=== PATIENT | male | born 1970 | race Caucasian/White ===

== ENCOUNTER 2018-11-21 15:25 | Inpatient (IN) ==
[2018-11-21] MEDS ORDERED: Mag Hydrox/Al Hydrox/Simeth 30 ML UDC PO PRN (15:38)
[2018-11-21] MEDS ORDERED: *HR* LORazepam 1 MG TABLET PO PRN (15:38)
[2018-11-21] MEDS ORDERED: *HR* LORazepam 2 MG/ML VIAL IM PRN (15:38)
[2018-11-21] MEDS ORDERED: Haloperidol Lactate 5 MG/ML VIAL IM PRN (15:38)
[2018-11-21] MEDS ORDERED: MOM Conc 10 ML UD.LIQ PO PRN (15:38)
[2018-11-21] MEDS ORDERED: Acetaminophen 325 MG TABLET PO PRN (15:38)
[2018-11-21] MEDS ORDERED: cloNIDine HCl 0.1 MG TABLET PO PRN (18:16)
[2018-11-21] MEDS: risperiDONE 1 MG TABLET PO SCH (21:08)
[2018-11-21] MEDS: Diclofenac Sodium 75 MG TABLET PO SCH (21:08)
[2018-11-21] MEDS: hydrOXYzine pamoate 25 MG CAPSULE PO PRN (21:08)
[2018-11-21] MEDS: traZODone 50 MG TABLET PO PRN (21:08)
[2018-11-22] MEDS: Diclofenac Sodium 75 MG TABLET PO SCH ×2 (10:47→21:07)
[2018-11-22] MEDS: risperiDONE 1 MG TABLET PO SCH ×2 (10:47→21:09)
[2018-11-22] MEDS: Nicotine 21 MG PATCH.TD24 TD SCH (10:47)
[2018-11-22] MEDS: BUPRENORPHINE NALOXONE PO SCH (11:15)
[2018-11-22] MEDS: *HR* Buprenorphine HCl 8 MG TAB.SUBL SL SCH (12:34)
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
[2018-11-22] MEDS: Mirtazapine 15 MG TABLET PO SCH (21:07)
[2018-11-22] MEDS: traZODone 50 MG TABLET PO PRN (21:07)
[2018-11-22] MEDS: hydrOXYzine pamoate 25 MG CAPSULE PO PRN (21:08)
[2018-11-23] MEDS: *HR* Buprenorphine HCl 8 MG TAB.SUBL SL SCH (08:38)
[2018-11-23] MEDS: risperiDONE 1 MG TABLET PO SCH ×2 (08:38→21:25)
[2018-11-23] MEDS: Diclofenac Sodium 75 MG TABLET PO SCH ×2 (08:38→21:25)
[2018-11-23] MEDS: Nicotine 21 MG PATCH.TD24 TD SCH (08:39)
[2018-11-23] MEDS ORDERED: *HR* Buprenorphine HCl 8 MG TAB.SUBL SL SCH (09:00)
[2018-11-23] MEDS: BUPRENORPHINE NALOXONE PO SCH (09:57)
--- NOTE | 2018-11-23 10:05 | Psychiatry Progress Note ---
Date of Encounter: 11/23/18 Time of Encounter: 10:04 Subjective Interval history: Doing well. Mood stable, thinking clear. TOlerated medications. No SI/HI. No psychosis. Review of Systems Psychiatric: Reports: depression, anxiety, anhedonia (less enjoyment than before). Denies: suicidal ideation, change in appetite, homicidal ideation, confusion, memory loss Results - Vital Signs Vital Signs: Temp Pulse Resp BP Pulse Ox 98 F 97 18 120/72 96 11/23/18 08:56 11/23/18 08:56 11/23/18 08:56 11/23/18 08:56 11/23/18 08:56 Assessment and Plan (1) Bipolar disorder Current visit: No Status: Acute Plan: Continue hospitalization, Close observation, Suicide Precautions per unit protocol, Encourage participation in unit milieu, Group Therapy, Monitor sleep, Monitor appetite Additional Plan: continue current medication, therapist working on discharge planning, encourage groups. Risks, benefits, side effects, alternatives discussed w/pt: Yes Patient agreeable to treatment: Yes Qualifiers: Active/Remission status: currently active Current bipolar episode type: depressed Current episode severity: severe Psychotic features: with psychotic features Qualified Code(s): F31.5 - Bipolar disorder, current episode depressed, severe, with psychotic features Consult Discharge Plan - Plan Referrals: NONE,PCP [Primary Care Provider] - Psychiatry Exam - Constitutional Vitals: Temp Pulse Resp BP Pulse Ox 98 F 97 18 120/72 96 11/23/18 08:56 11/23/18 08:56 11/23/18 08:56 11/23/18 08:56 11/23/18 08:56 General appearance: age & developmentally appropriate, well-groomed, well- nourished - Musculoskeletal Gait: normal Station: relaxed Strength & Tone: normal for patient - Psychiatric Patient Orientation: Yes Person, Yes Time, Yes Place Level of alertness: Alert Behavior: calm, cooperative Psychomotor activity: Normal Eye Contact: Maintains Eye Contact Mood Description: Euthymic/stable, Depressed Patient description of mood: "better" Affect description: congruent with mood, dysphoric Speech Volume: Normal Speech pattern: normal rate, normal rhythm, normal tone, fluent, spontaneous Language & Vocabulary: consistent with education Thought Process: Linear, Goal Oriented Thought Content: No Suicidal ideation, No Homicidal ideation, No Overt delusions Perceptual Disturbances: No Auditory hallucinations, No Visual hallucinations Attention Span Ability: Capable of Focused Attention Memory Description: Grossly Intact Patient Reliability: Reliable Historian Fund of knowledge: Yes abstraction ability, Yes aware of current events Intelligence Estimate: Average Judgment: Fair Insight: Partial
[2018-11-23] MEDS: hydrOXYzine pamoate 25 MG CAPSULE PO PRN (21:25)
[2018-11-23] MEDS: Mirtazapine 15 MG TABLET PO SCH (21:26)
[2018-11-23] MEDS: traZODone 50 MG TABLET PO PRN (21:26)
[2018-11-24] MEDS: *HR* Buprenorphine HCl 8 MG TAB.SUBL SL SCH (08:49)
[2018-11-24] MEDS: Nicotine 21 MG PATCH.TD24 TD SCH (08:50)
[2018-11-24] MEDS: Diclofenac Sodium 75 MG TABLET PO SCH (08:50)
[2018-11-24] MEDS: risperiDONE 1 MG TABLET PO SCH (08:50)
--- NOTE | 2018-11-24 08:52 | Discharge Summary ---
Date of Encounter: 11/24/18 Time of Encounter: 10:00 Medications - Discharge Medications Prescriptions: RX: Buprenorphine HCl/Naloxone HCl [Buprenorphin-Naloxon 8-2 mg Sl] 1 tab PO DAILY 7 Days #7 tab.subl RX: cloNIDine HCl [CloNIDine HCl] 0.1 mg PO HS PRN #30 tablet PRN Reason: Sleep RX: hydrOXYzine HCl [Hydroxyzine HCl] 25 mg PO Q6H PRN #90 tablet PRN Reason: Anxiety RX: Mirtazapine [Remeron] 7.5 mg PO HS #30 tablet RX: risperiDONE [RisperDAL] 1 mg PO BID #30 tablet RX: traZODone [TraZODone] 50 mg PO HS PRN #30 tablet PRN Reason: Insomnia RX: Diclofenac Sodium [Voltaren] 75 mg PO BID 11/19/18 [History] RX: Omeprazole [PriLOSEC] 40 mg PO DAILY 11/19/18 [History] RX: Buprenorphine HCl/Naloxone HCl [Buprenorphin-Naloxon 8-2 mg Sl] 1 tab PO DAILY 7 Days #7 tab.subl 11/24/18 [Rx] RX: Mirtazapine [Remeron] 7.5 mg PO HS #30 tablet 11/24/18 [Rx] RX: cloNIDine HCl [CloNIDine HCl] 0.1 mg PO HS PRN #30 tablet 11/24/18 [Rx] RX: hydrOXYzine HCl [Hydroxyzine HCl] 25 mg PO Q6H PRN #90 tablet 11/24/18 [Rx] RX: risperiDONE [RisperDAL] 1 mg PO BID #30 tablet 11/24/18 [Rx] RX: traZODone [TraZODone] 50 mg PO HS PRN #30 tablet 11/24/18 [Rx] Allergy/AdvReac Type Severity Reaction Status Date / Time No Known Allergies Allergy Verified 11/22/18 20:51 Results Procedures and tests throughout hospitalization: None - Impressions None Provider Date of admission: 11/21/18 15:25 Primary care physician: PCP NONE Consults: None Discharging clinician: Renu Canales Psychiatry Exam - Constitutional Vitals: Temp Pulse Resp BP Pulse Ox 98.4 F 94 18 143/83 97 11/23/18 20:38 11/23/18 20:38 11/23/18 20:38 11/23/18 20:38 11/23/18 20:38 General appearance: age & developmentally appropriate, well-groomed, well- nourished, average - Musculoskeletal Gait: normal Station: relaxed Strength & Tone: normal for patient (Grossly) - Psychiatric Patient Orientation: Yes Person, Yes Time, Yes Place Level of alertness: Alert, Follows commands Behavior: calm, cooperative Psychomotor activity: Normal Eye Contact: Maintains Eye Contact Mood Description: Euthymic/stable Patient description of mood: "Pretty good" Affect description: congruent with mood, constricted Speech Volume: Normal Speech pattern: normal rate, normal tone, fluent, spontaneous, limited (Decreased prosody) Language & Vocabulary: consistent with education Thought Process: Logical, Linear, Goal Oriented Thought Content: No Suicidal ideation, No Homicidal ideation, No Overt delusions Perceptual Disturbances: No Reacting to internal stimuli, No Auditory hallucinations, No Visual hallucinations Attention Span Ability: Capable of Focused Attention Memory Description: Grossly Intact Patient Reliability: Reliable Historian Fund of knowledge: Yes abstraction ability, Yes aware of current events Intelligence Estimate: Average Judgment: Fair Insight: Partial Hospital Course Hospital course: Mr. Chinchilla is a 48 year old male with a reported past psychiatric history of depression, anxiety, and bipolar disorder who is being voluntarily admitted for paranoia and SI with possible attempt. Patient was admitted to from the ED on 11/19/18 for paranoia. However, soon after admission, we was found to have an altered mental status. He was transferred to inpatient medicine where is was determined that he had overdosed on his SSRI and TCA medications with jerking movements and clonus. He was intermittently paranoid and suicidal on the medical unit but without plan. Once medically stable, he was transferred back to . Patient was discontinued off fluoxetine, doxepin, and amitriptyline. He was also discontinued off ziprasidone. He was started on risperidone 1 mg by mouth twice a day for mood. He was also started on mirtazapine 7.5 mg by mouth daily at bedtime for sleep and mood. His physical jerking movements decreased throughout the visit, absent soon after admission. Upon discharge, he reports that he does notice now that the psychotic symptoms started with the initiation of the amitriptyline. He admits that it is possible he was not taking these me dications appropriately, though not doing this intentionally. He continued to state deny that he had an intentional overdose or was on drugs prior to admission. He was educated that he should cease the use of TCA medication due to his lethality. Patient was educated of her diagnosis and the risk-benefit side effects of this alternative treatment options and was monitored for responsiveness and side effects. Mood anxiety sleep and appetite interest improved as did future orientation. Self-harm thoughts subsided, thinking cleared, psychosis resolved, and mood stabilized. Patient was able to attend both individual and group therapy sessions as well as meeting with the psychiatrist daily and urged to discuss any medication or treatment issues or other concerns. The patient was educated primarily by verbal means about their diagnosis and manifestations in their life. The option for treatment including group and individual therapy programming was offered to the patient in the use of medications with all their potential risks, benefits, and side effects were discussed with the patient at length. The patient was given the opportunity to ask questions and was noted to participate in the treatment in the planning process. The patient felt ready and eager to be discharged from the inpatient psychiatric unit to continue on with treatment as an outpatient. The patient agreed that is they were safe for this disposition. The patient was considered to be able to participate in informed consent and decision making with respect to medical, legal, and financial issues of the time of discharge. At the time of discharge the patient adamantly denied any concerns for lethality including suicidal or homicidal thoughts ideations or plans and was future oriented toward ongoing mental health care, medical follow-up and sobriety. Time spent discussing smoking cessation with patient: more than 10 minutes Does patient wish to continue nicotine replacement upon disc: No - Time Spent with Patient Total time spent providing and/or coordinating discharge services: Greater than 30 minutes Greater than 30 minutes Specific discharge activities: Interval history reviewed. Available labs reviewed . Psychotherapy provided. Patient had an opportunity to ask questions and address concerns. Patient was in agreement with the treatment plan. The risks benefits and side effects of medications were discussed with the patient, including alternatives and treatment. The patient was educated on the abstaining from any alcohol or illicit substances, following up with all scheduled appointments, and taking all medications as prescribed. The patient was educated to continue MAT services which are already established Assessment and Plan - Patient/Caregiver Discharge Instructions Activity: resume usual activities as tolerated Diet: regular diet Additional Instructions: Continue current medications. Follow up with outpatient mental health. Encourage continued therapy in a group or individual setting. The patient was discharged to home. - Follow up Plan Follow up with: [facility] [Other] - 11/27/18 3:00 pm (You have an appintment scheduled with Faheem Bhagat on TuesdayNovember 27 at 3:00 PM. ) [facility] - 12[facility]01/18 3:00 pm (You have an appointment scheduled for Saturday, December 01, 2018 at 3:00 PM with Kaylen Brown for an initial intake assessment. This appointment typically takes 1 1 hours and will cover your current symptoms and goals for treatment. Please complete the New Patient Intake Packet provided to you by staff and bring this with you to this appointment. Please also bring your insurance card, identification, proof of residence (utility bill or similar piece of mail), and proof of income (if applicable). If you are unable to keep this appointment, please call the office at the number above as soon as possible.) Functional capacity at discharge: independent ambulation Overall status at discharge: Stable Disposition: Home, Self-Care Quality - Multiple Antipsychotics Patient discharged on 2 or more antipsychotic medications: No - Attending Attestation I examined this patient and my medical decision-making was reviewed with the Resident Physician. I agree with the documented findings, disposition and treatment plan as described except to the extent set forth below. Procedures - Procedures Procedures: Medication Management, Crisis Stabilization, Supportive Therapy, Group Therapy, Psychoeducational Therapy
[2018-11-24 09:24] VITALS: BP 139/73
== END 2018-11-24 15:00 | disposition home or self-care (01) | DRG 753 ==
LOC: 1ANU 15:25
PROVIDERS: ADMIT Psychiatry & Neurology Psychiatry; ATTEND Psychiatry & Neurology Psychiatry

== ENCOUNTER 2020-09-21 09:21 | Inpatient (IN) ==
[2020-09-21 09:46] LABS: Bilirubin,Urine Negative (Negative); Blood,Urine Negative (Negative); Clarity,Urine Clear (Clear); Color,Urine Light-Yellow (Yellow); Glucose,Urine (UA) Normal (Normal); Ketones,Urine Negative (Negative); Leukocyte Esterase,Urine Negative (Negative); Nitrite,Urine Negative (Negative); PH,Urine 6.5 pH Units (5.0-8.0); Protein,Urine Negative (Neg-Trace); Specific Gravity,Urine 1.013 (1.010-1.025); Urobilinogen,Urine Normal (Normal)
[2020-09-21 09:55] LABS: Amphetamine Screen,Urine Positive ng/mL (Cutoff=1000); Barbiturate Screen,Urine Negative ng/mL (Cutoff=200); Benzodiazepines Screen,Urine Negative ng/mL (Cutoff=200); Cannabinoid Screen,Urine Negative ng/mL (Cutoff = 50); Cocaine Screen,Urine Negative ng/mL (Cutoff= 300); Opiate Screen,Urine Negative ng/mL (Cutoff=300); Phencyclidine Screen,Urine Negative ng/mL (Cutoff=25)
[2020-09-21] MEDS ORDERED: haloperidoL 5 MG TABLET PO PRN (12:27)
[2020-09-21] MEDS ORDERED: *HR* LORazepam 2 MG/ML VIAL IM PRN (12:27)
[2020-09-21] MEDS ORDERED: Mag Hydrox/Al Hydrox/Simeth 30 ML UDC PO PRN (12:27)
[2020-09-21] MEDS ORDERED: *HR* LORazepam 1 MG TABLET PO PRN (12:27)
[2020-09-21] MEDS ORDERED: Haloperidol Lactate 5 MG/ML VIAL IM PRN (12:27)
[2020-09-21] MEDS: Nicotine 21 MG PATCH.TD24 TD SCH (16:35)
[2020-09-21] MEDS: hydrOXYzine pamoate 25 MG CAPSULE PO PRN (16:39)
[2020-09-21] MEDS: GuaiFENesin/Pseudophedrine TABLET PO SCH (21:01)
[2020-09-21] MEDS: BUPRENORPHINE SL SCH (21:01)
[2020-09-21] MEDS: NALOXONE SL SCH (21:01)
[2020-09-21] MEDS: QUEtiapine Fumarate 100 MG TABLET PO SCH (21:01)
[2020-09-21] MEDS: Furosemide 40 MG TABLET PO SCH (21:01)
[2020-09-22] MEDS: ARIPiprazole 5 MG TABLET PO SCH (08:40)
[2020-09-22] MEDS: FLUoxetine 20 MG CAPSULE PO SCH (08:40)
[2020-09-22] MEDS: GuaiFENesin/Pseudophedrine TABLET PO SCH ×2 (08:41→21:39)
[2020-09-22] MEDS: Furosemide 40 MG TABLET PO SCH ×2 (08:41→21:39)
[2020-09-22] MEDS: Nicotine 21 MG PATCH.TD24 TD SCH (08:42)
[2020-09-22] MEDS: NALOXONE SL SCH ×3 (08:44→21:39)
[2020-09-22] MEDS: Ibuprofen 400 MG TABLET PO PRN (08:44)
[2020-09-22] MEDS: BUPRENORPHINE SL SCH ×3 (08:44→21:39)
[2020-09-22] MEDS ORDERED: NON-FORMULARY MEDICATION 1 EACH EACH (Buprenorphine Hcl/Naloxone Hcl [Suboxone 8 Mg-2 Mg S SL SCH (09:00)
[2020-09-22] MEDS: hydrOXYzine pamoate 25 MG CAPSULE PO PRN (15:56)
[2020-09-22] MEDS: QUEtiapine Fumarate 100 MG TABLET PO SCH (21:39)
[2020-09-23] MEDS: GuaiFENesin/Pseudophedrine TABLET PO SCH (08:49)
[2020-09-23] MEDS: ARIPiprazole 5 MG TABLET PO SCH (08:50)
[2020-09-23] MEDS: FLUoxetine 20 MG CAPSULE PO SCH (08:50)
[2020-09-23] MEDS: BUPRENORPHINE SL SCH (08:51)
[2020-09-23] MEDS: NALOXONE SL SCH (08:51)
[2020-09-23] MEDS: Nicotine 21 MG PATCH.TD24 TD SCH (08:52)
[2020-09-23] MEDS: Ibuprofen 400 MG TABLET PO PRN (08:55)
[2020-09-23 09:03] VITALS: BP 91/61
[2020-09-23] MEDS: Furosemide 40 MG TABLET PO SCH (09:17)
[2020-09-23] MEDS ORDERED: FLU Vac QV 20-21 (6Month+)/PF 0.5 ML SYRINGE IM ONE (11:34)
== END 2020-09-23 17:35 | disposition home or self-care (01) ==
LOC: EMEROOARM 09:21 → 1ANU 12:17
PROVIDERS: ADMIT Psychiatry & Neurology Forensic Psychiatry; ATTEND Psychiatry & Neurology Forensic Psychiatry